=== PATIENT | male | born 1955 | race African-American/Black ===

== ENCOUNTER 2020-07-04 12:55 | Observation (INO) | payer OTHER, MEDICAID ==
[~2020-07-04] VITALS: Ht 177.8 cm; Wt 76.3 kg
[2020-07-04 13:32] LABS: BASO % 1 % (0-3); EOS # 0.2 x10^3/uL (0.0-0.7); EOS % 3 % (0-3); HEMATOCRIT 42.7 % (39.0-53.0); HEMOGLOBIN 13.9 g/dL (13.0-17.5); LYMPH # 1.5 x10^3/uL (1.0-4.8); LYMPH % 30 % (24-48); MEAN CORPUSCULAR HEMOGLOBIN 28 pg (25-35); MEAN CORPUSCULAR HGB CONC 33 g/dL (31-37); MEAN CORPUSCULAR VOLUME 86 fL (79-100); MONO # 0.7 x10^3/uL (0.0-1.1); MONO % 14 % (0-9); NEUT # 2.6 x10^3/uL (1.8-7.7); NEUT % 52 % (31-73); PLATELET COUNT 159 x10^3/uL (140-400); RED BLOOD COUNT 4.98 x10^6/uL (4.30-5.70)
--- NOTE | 2020-07-04 13:39 | PHYS DOC ---
Past Medical History Past Medical History: Cancer, CHF, COPD, Diabetes-Type II, GERD, GI Bleed, Hypertension, OK, Pancreatitis, Seizure, Stroke, Other Additional Past Medical Histor: COLORECTAL CA WITH CHEMO Past Surgical History: Cancer Surgery, Tonsillectomy, Other Additional Past Surgical Histo: CARDIAC CATH WITH STENTS, RIGHT FOOT SURGERY Smoking Status: Current Every Day Smoker Alcohol Use: Rarely Drug Use: None General Adult EDM: Chief Complaint: CHEST PAIN HPI: HPI: Patient is a 64 year old male who presented to ER today for evaluation of left- sided chest pain that radiated on the neck started yesterday. Patient also had trouble breathing, denies any cough or fever. Patient denies any abdominal pain, no nausea vomiting. Patient do have history of CHF, COPD,continues to smoke. He also has history of coronary artery disease, had multiple stents in the past. Patient took several doses of nitroglycerin at home but the pain did not get better so he came here for evaluation. Review of Systems: Review of Systems: Constitutional: Denies fever or chills. [] Eyes: Denies change in visual acuity. [] HENT: Denies nasal congestion or sore throat. [] Respiratory: Denies cough or shortness of breath. [] Cardiovascular: Positive for chest pain, no edema.] GI: Denies abdominal pain, nausea, vomiting, bloody stools or diarrhea. [] : Denies dysuria. [] Musculoskeletal: Denies back pain or joint pain. [] Integument: Denies rash. [] Neurologic: Denies headache, focal weakness or sensory changes. [] Endocrine: Denies polyuria or polydipsia. [] Lymphatic: Denies swollen glands. [] Psychiatric: Denies depression or anxiety. [] Heart Score: HEART Score for Chest Pain: HEART Score for Chest Pain Response (Comments) Value History Moderately Suspicious 1 ECG Nonspecific Repolarizatio 1 Age > 65 2 Risk Factors >3 Risk Factors or Hx CAD 2 Troponin < Normal Limit 0 Total 6 Risk Factors: Risk Factors: DM, Current or recent (<one month) smoker, HTN, HLP, family history of CAD, obesity. Risk Scores: Score 0 - 3: 2.5% MACE over next 6 weeks - Discharge Home Score 4 - 6: 20.3% MACE over next 6 weeks - Admit for Clinical Observation Score 7 - 10: 72.7% MACE over next 6 weeks - Early Invasive Strategies Allergies: Allergies: Allergies Coded Allergies Type Severity Reaction Last Updated Verified carbamazepine Allergy Severe Anaphylaxis 04/13/15 No phenobarbital Allergy Severe Anaphylaxis 04/13/15 No phenytoin Allergy Severe Anaphylaxis 04/13/15 No diphenhydramine Allergy Intermediate Hives 04/13/15 No Physical Exam: PE: Constitutional: Well developed, well nourished, no acute distress, non-toxic appearance. [] HENT: Normocephalic, atraumatic, bilateral external ears normal, oropharynx moist, no oral exudates, nose normal. [] Eyes: PERRLA, EOMI, conjunctiva normal, no discharge. [] Neck: Normal range of motion, no tenderness, supple, no stridor. [] Cardiovascular:Heart rate regular rhythm, no murmur [] Lungs & Thorax: Bilateral breath sounds clear to auscultation [] Abdomen: Bowel sounds normal, soft, no tenderness, no masses, no pulsatile masses. [] Skin: Warm, dry, no erythema, no rash. [] Back: No tenderness, no CVA tenderness. [] Extremities: No tenderness, no cyanosis, no clubbing, ROM intact, no edema. [] Neurologic: Alert and oriented X 3, normal motor function, normal sensory function, no focal deficits noted. [] Psychologic: Affect normal, judgement normal, mood normal. [] Current Patient Data: Labs: Laboratory Tests Test 07/04/20 13:20 White Blood Count 5.0 x10^3/uL (4.0-11.0) Red Blood Count 4.98 x10^6/uL (4.30-5.70) Hemoglobin 13.9 g/dL (13.0-17.5) Hematocrit 42.7 % (39.0-53.0) Mean Corpuscular Volume 86 fL (79-100) Mean Corpuscular Hemoglobin 28 pg (25-35) Mean Corpuscular Hemoglobin Concent 33 g/dL (31-37) Red Cell Distribution Width 13.0 % (11.5-14.5) Platelet Count 159 x10^3/uL (140-400) Neutrophils (%) (Auto) 52 % (31-73) Lymphocytes (%) (Auto) 30 % (24-48) Monocytes (%) (Auto) 14 % (0-9) H Eosinophils (%) (Auto) 3 % (0-3) Basophils (%) (Auto) 1 % (0-3) Neutrophils # (Auto) 2.6 x10^3/uL (1.8-7.7) Lymphocytes # (Auto) 1.5 x10^3/uL (1.0-4.8) Monocytes # (Auto) 0.7 x10^3/uL (0.0-1.1) Eosinophils # (Auto) 0.2 x10^3/uL (0.0-0.7) Basophils # (Auto) 0.0 x10^3/uL (0.0-0.2) Laboratory Tests 07/04/20 13:20 Vital Signs: Vital Signs Date Time Temp Pulse Resp B/P (MAP) Pulse Ox O2 Delivery O2 Flow Rate FiO2 07/04/20 13:10 98.3 83 22 176/86 (116) 97 Room Air 98.3 EKG: EKG: EKG was done at 1308, heart rate of 85 bpm, sinus rhythm, no ST segment elevation. Incomplete left bundle branch block. Radiology/Procedures: Impression: [facility] [address] [place] [address] IMAGING REPORT Signed PATIENT: MEY BUCHANAN ACCOUNT: [id number] : 1955 LOCATION: ER AGE: 64 SEX: M EXAM STATUS: REG ER ORD. PHYSICIAN: ERNESTINE NUÑEZ DO REASON: chest pain PROCEDURE: PORTABLE CHEST 1V PORTABLE CHEST 1V Clinical indications: Chest pain. COMPARISON: April 25, 2009. Findings: No acute lung infiltrate or pleural effusion or pulmonary edema or lung mass or pneumothorax is seen. The heart size, pulmonary vasculature, mediastinum and both mark are unremarkable. Impression: No acute radiographic abnormality is seen. Electronically signed by: Yung York MD (07/04/2020 1:39 PM) [id number] DICTATED and SIGNED BY: YUNG YORK MD DATE: 07/04/20 1339 Course & Med Decision Making: Course & Med Decision Making Pertinent Labs and Imaging studies reviewed. (See chart for details) Patient is a 64-year-old male who was evaluated in ER due to chest pain since yesterday. Due to his risk factorS, patient will be admitted to observation. Discussed with Dr. Yung. Jose Disclaimer: Jose Disclaimer: This electronic medical record was generated, in whole or in part, using a voice recognition dictation system. Departure Departure Impression: Primary Impression: Chest pain Disposition: ADMITTED INPATIENT Admitting Physician: MARIANNE (Dr. Yung) Condition: STABLE Referrals: DONELL ELIZABETH DO (PCP) Justicifation of Admission Dx: Justifications for Admission: Justification of Admission Dx: N/A ERNESTINE NUÑEZ DO Jul 04, 2020 13:39
--- NOTE | 2020-07-04 13:43 | RAD ---
PORTABLE CHEST 1V Clinical indications: Chest pain. COMPARISON: April 25, 2009. Findings: No acute lung infiltrate or pleural effusion or pulmonary edema or lung mass or pneumothorax is seen. The heart size, pulmonary vasculature, mediastinum and both mark are unremarkable. Impression: No acute radiographic abnormality is seen. Electronically signed by: Patric York MD (07/04/2020 1:39 PM) [id number]
[2020-07-04 13:50] LABS: PROTHROMBIN TIME PATIENT 12.4 SEC (11.7-14.0)
[2020-07-04 13:52] LABS: CALCIUM 9.6 mg/dL (8.5-10.1); CREATININE 1.5 mg/dL (0.7-1.3); GFR 56.8
[2020-07-04 13:57] LABS: ALBUMIN 3.2 g/dL (3.4-5.0); ALBUMIN/GLOBULIN RATIO 0.8 (1.0-1.7); TOTAL BILIRUBIN 0.4 mg/dL (0.2-1.0); TOTAL PROTEIN 7.2 g/dL (6.4-8.2)
[2020-07-04] MEDS ORDERED: ZOLPIDEM 5 MG TABLET. PO PRN (14:15)
[2020-07-04] MEDS ORDERED: ACETAMINOPHEN 325 MG TABLET. PO PRN (14:15)
[2020-07-04] MEDS ORDERED: LACTULOSE 20 GM/30 ML SOLUTION. PO PRN (14:15)
[2020-07-04] MEDS ORDERED: NITROGLYCERIN SUBLINGUAL 0.4 MG BOTTLE OF 25. SL PRN ×2 (14:15→17:15)
[2020-07-04] MEDS ORDERED: MAG HYDROX/ALUMINUM HYD/SIMETH 30 ML ORAL.SUSP PO PRN (14:15)
[2020-07-04] MEDS ORDERED: 0.9 % SODIUM CHLORIDE 10 ML DISP.SYRIN. IV PRN (14:15)
[2020-07-04] MEDS ORDERED: ONDANSETRON PF 4 MG/2 ML VIAL. IVP PRN (14:15)
[2020-07-04] MEDS ORDERED: MORPHINE SULFATE 2 MG/ML VIAL. IVP PRN (14:15)
[2020-07-04] MEDS ORDERED: MAGNESIUM HYDROXIDE 2,400 MG/30 ML ORAL.SUSP. PO PRN (14:15)
--- NOTE | 2020-07-04 14:21 | PDOC1 ---
History and Physical Date of Admission Date of Admission 07/04/2020 Identification/Chief Complaint Chief Complaint My chest hurts Source Source: Chart review, Patient History of Present Illness History of Present Illness Patient is a 64-year-old gentleman with past medical history of coronary artery disease status post PCI and stent, congestive heart failure diabetes type 2 history of essential hypertension who was in his usual state of health until approximately yesterday evening when he had precordial chest pain sharp in nature lasting few seconds but recurred and lasting less than 5 minutes. Patient had associated dyspnea, no cough fever or recent exposure to COVID-19 patients was reported by the patient. The patient denied any generalized malaise no fever no cold-like symptoms. Patient denies any sensation of impending doom he did not have any nausea associated with the chest discomfort. Patient does have a history of congestive heart failure and is in the process of establishing care with cardiology. Patient does not remember when was last time he had an echocardiogram. Keeps referring to the medical records we should have on file which I have reviewed and unfortunately have not been able to find evidence of cardiac catheterization nor echocardiograms in the recent past. At the time of my note the patient is laying in bed in no acute distress the patient gives a history of taking nitroglycerin alleviating his symptoms and given the past medical history and story concerning for angina at rest he is being admitted for further evaluation and treatment. Plan of care has been explained detail and all of his concerns were addressed to the best of my abilities. Patient denies any headache no blurred vision no double vision no paroxysmal internal dyspnea no syncopal episodes were reported no palpitations no other symptoms have been reported. All concerns were addressed to the best of my ability Past Medical History Cardiovascular: CAD, HTN, Hyperlipidemia CENTRAL NERVOUS SYSTEM: CVA, Seizure GI: Other (Pancreatitis) Heme/Onc: Cancer (Colorectal) Endocrine: Diabetes Past Surgical History Past Surgical History: No pertinent history (PCI) Family History Family History: No Significant Social History Smoke: # pack years (Greater than 20 pack/years) ALCOHOL: none Drugs: None Current Problem List Problem List Problems Medical Problems: (1) Chest pain Status: Acute Allergies Allergies Allergies Coded Allergies Type Severity Reaction Last Updated Verified carbamazepine Allergy Severe Anaphylaxis 04/13/15 No phenobarbital Allergy Severe Anaphylaxis 04/13/15 No phenytoin Allergy Severe Anaphylaxis 04/13/15 No diphenhydramine Allergy Intermediate Hives 04/13/15 No ROS Review of System CONSTITUTIONAL: No fever or chills EYES: No recent changes SKIN: No rash or itching CARDIOVASCULAR: Pertinent chest pain, no syncope, palpitations, or edema RESPIRATORY: No SOB or cough GASTROINTESTINAL: No nausea, vomiting or abdominal pain NEUROLOGICAL: No headaches or weakness ENDOCRINE: No cold or heat intolerance GENITOURINARY: No urgency or frequency of urination MUSCULOSKELETAL: No back pain or joint pain LYMPHATICS: No enlarged lymph nodes PSYCHIATRIC: No anxiety or depression Physical Exam Physical Exam GEN.: No apparent distress. Alert and oriented. HEENT: Head is normocephalic, atraumatic NECK: Supple. LUNGS: Clear to auscultation. HEART: RRR, S1, S2 present. Peripheral pulses intact ABDOMEN: Soft, nontender. Positive bowel sounds. EXTREMITIES: Without any cyanosis. NEUROLOGIC: Normal speech, normal tone PSYCHIATRIC: Normal affect, normal mood. SKIN: No ulcerations Vitals Vitals Vital Signs Date Time Temp Pulse Resp B/P (MAP) Pulse Ox O2 Delivery O2 Flow Rate FiO2 07/04/20 13:10 98.3 83 22 176/86 (116) 97 Room Air 98.3 Labs Labs Laboratory Tests Test 07/04/20 13:20 White Blood Count 5.0 x10^3/uL (4.0-11.0) Red Blood Count 4.98 x10^6/uL (4.30-5.70) Hemoglobin 13.9 g/dL (13.0-17.5) Hematocrit 42.7 % (39.0-53.0) Mean Corpuscular Volume 86 fL (79-100) Mean Corpuscular Hemoglobin 28 pg (25-35) Mean Corpuscular Hemoglobin Concent 33 g/dL (31-37) Red Cell Distribution Width 13.0 % (11.5-14.5) Platelet Count 159 x10^3/uL (140-400) Neutrophils (%) (Auto) 52 % (31-73) Lymphocytes (%) (Auto) 30 % (24-48) Monocytes (%) (Auto) 14 % (0-9) Eosinophils (%) (Auto) 3 % (0-3) Basophils (%) (Auto) 1 % (0-3) Neutrophils # (Auto) 2.6 x10^3/uL (1.8-7.7) Lymphocytes # (Auto) 1.5 x10^3/uL (1.0-4.8) Monocytes # (Auto) 0.7 x10^3/uL (0.0-1.1) Eosinophils # (Auto) 0.2 x10^3/uL (0.0-0.7) Basophils # (Auto) 0.0 x10^3/uL (0.0-0.2) Sodium Level 141 mmol/L (136-145) Potassium Level 5.0 mmol/L (3.5-5.1) Chloride Level 106 mmol/L (98-107) Carbon Dioxide Level 29 mmol/L (21-32) Anion Gap 6 (6-14) Blood Urea Nitrogen 15 mg/dL (8-26) Creatinine 1.5 mg/dL (0.7-1.3) Estimated GFR (Cockcroft-Gault) 56.8 BUN/Creatinine Ratio 10 (6-20) Glucose Level 116 mg/dL (70-99) Calcium Level 9.6 mg/dL (8.5-10.1) Magnesium Level 2.0 mg/dL (1.8-2.4) Total Bilirubin 0.4 mg/dL (0.2-1.0) Aspartate Amino Transf (AST/SGOT) 32 U/L (15-37) Alanine Aminotransferase (ALT/SGPT) 28 U/L (16-63) Alkaline Phosphatase 115 U/L (46-116) Troponin I Quantitative < 0.017 ng/mL (0.000-0.055) EV-Toq-C-Type Natriuretic Peptide 333 pg/mL (0-124) Total Protein 7.2 g/dL (6.4-8.2) Albumin 3.2 g/dL (3.4-5.0) Albumin/Globulin Ratio 0.8 (1.0-1.7) Lipase 141 U/L (73-393) Laboratory Tests Test 07/04/20 13:20 White Blood Count 5.0 x10^3/uL (4.0-11.0) Red Blood Count 4.98 x10^6/uL (4.30-5.70) Hemoglobin 13.9 g/dL (13.0-17.5) Hematocrit 42.7 % (39.0-53.0) Mean Corpuscular Volume 86 fL (79-100) Mean Corpuscular Hemoglobin 28 pg (25-35) Mean Corpuscular Hemoglobin Concent 33 g/dL (31-37) Red Cell Distribution Width 13.0 % (11.5-14.5) Platelet Count 159 x10^3/uL (140-400) Neutrophils (%) (Auto) 52 % (31-73) Lymphocytes (%) (Auto) 30 % (24-48) Monocytes (%) (Auto) 14 % (0-9) Eosinophils (%) (Auto) 3 % (0-3) Basophils (%) (Auto) 1 % (0-3) Neutrophils # (Auto) 2.6 x10^3/uL (1.8-7.7) Lymphocytes # (Auto) 1.5 x10^3/uL (1.0-4.8) Monocytes # (Auto) 0.7 x10^3/uL (0.0-1.1) Eosinophils # (Auto) 0.2 x10^3/uL (0.0-0.7) Basophils # (Auto) 0.0 x10^3/uL (0.0-0.2) Sodium Level 141 mmol/L (136-145) Potassium Level 5.0 mmol/L (3.5-5.1) Chloride Level 106 mmol/L (98-107) Carbon Dioxide Level 29 mmol/L (21-32) Anion Gap 6 (6-14) Blood Urea Nitrogen 15 mg/dL (8-26) Creatinine 1.5 mg/dL (0.7-1.3) Estimated GFR (Cockcroft-Gault) 56.8 BUN/Creatinine Ratio 10 (6-20) Glucose Level 116 mg/dL (70-99) Calcium Level 9.6 mg/dL (8.5-10.1) Magnesium Level 2.0 mg/dL (1.8-2.4) Total Bilirubin 0.4 mg/dL (0.2-1.0) Aspartate Amino Transf (AST/SGOT) 32 U/L (15-37) Alanine Aminotransferase (ALT/SGPT) 28 U/L (16-63) Alkaline Phosphatase 115 U/L (46-116) Troponin I Quantitative < 0.017 ng/mL (0.000-0.055) AD-Mdi-X-Type Natriuretic Peptide 333 pg/mL (0-124) Total Protein 7.2 g/dL (6.4-8.2) Albumin 3.2 g/dL (3.4-5.0) Albumin/Globulin Ratio 0.8 (1.0-1.7) Lipase 141 U/L (73-393) VTE Prophylaxis Ordered VTE Prophylaxis Devices: No VTE Pharmacological Prophylaxi: Yes Assessment/Plan Assessment/Plan Chest pain rule out ACS History of CHF most likely systolic dysfunction given history of ischemic heart disease COPD secondary to tobacco abuse Tobacco abuse counseling done less than 10 minutes Diabetes mellitus type 2 Essential hypertension History of PCI and stent placement History of colorectal cancer status post chemotherapy Plan Trend troponin Consult cardiology Resume home medications once available for review Pain management Nitro PRN for chest discomfort DVT prophylaxis with Lovenox Further recommendations based on the clinical course Justifications for Admission Chest Pain Indications Poss tachycardia?: Yes Respiratory Distress?: Yes Chest pain indicative of: Other: Please Specify Other Chest Pain Conditions: angina Is patient at high risk?: Yes Other Justification ALONSO OLIVEIRA MD Jul 04, 2020 14:21
[2020-07-04] MEDS ORDERED: ASPIRIN CHEWABLE 81 MG TABLET. PO ONE (14:30)
--- NOTE | 2020-07-04 14:54 | EKG ---
[facility] [address] [place] [address] Test Date: 2020-07-04 Test Time: 13:08:07 Pat Name: MEY BUCHANAN Department: Room: Gender: M Manager Mining: : 1955 Requested By: ERNESTINE NUÑEZ Order Number: [id number] Reading MD: Measurements Intervals [place] Rate: 85 P: 69 MA: 130 QRS: -19 QRSD: 98 T: 15 QT: 356 QTc: 424 Interpretive Statements SINUS RHYTHM LEFT ATRIAL ABNORMALITY LEFTWARD AXIS INCOMPLETE RIGHT BUNDLE BRANCH BLOCK ABNORMAL ECG RI6.02 No previous ECG available for comparison
[2020-07-04 15:17] VITALS: BP 90/72
[2020-07-04] MEDS ORDERED: CARV25TA2 PO (17:00)
[2020-07-04] MEDS ORDERED: NITR0.4T22 SL (17:00)
[2020-07-04] MEDS ORDERED: OXYC5CAP PO (17:00)
[2020-07-04] MEDS ORDERED: FURO40TA4 PO (17:00)
[2020-07-04] MEDS ORDERED: CLOP75TA PO (17:00)
[2020-07-04] MEDS: CARVEDILOL 12.5 MG TABLET. PO SCH (17:37)
[2020-07-04] MEDS: CLOPIDOGREL BISULFATE 75 MG TABLET PO SCH (17:37)
[2020-07-04 17:42] VITALS: BP 161/83
[2020-07-04] MEDS: oxyCODONE IR 5 MG TABLET PO PRN (18:00)
[2020-07-04 19:50] VITALS: BP 150/91
[2020-07-04] MEDS: SENNOSIDES/DOCUSATE 8.6/50MG TABLET. PO SCH (21:21)
[2020-07-04] MEDS: HEPARIN for SUB-Q USE 5,000 UNIT/ML VIAL. SQ SCH (21:23)
[2020-07-04 23:20] VITALS: BP 141/81
[2020-07-05 03:35] VITALS: BP 141/68
[2020-07-05] MEDS: oxyCODONE IR 5 MG TABLET PO PRN (03:51)
[2020-07-05] MEDS: HEPARIN for SUB-Q USE 5,000 UNIT/ML VIAL. SQ SCH (06:03)
[2020-07-05 07:00] VITALS: BP 135/69
[2020-07-05 07:52] LABS: CHOLESTEROL/HDL RATIO 4.1; PHOSPHORUS 3.5 mg/dL (2.6-4.7)
[2020-07-05] MEDS ORDERED: ASPIRIN 325 MG TABLET PO SCH (08:00)
[2020-07-05] MEDS: CARVEDILOL 12.5 MG TABLET. PO SCH (08:32)
[2020-07-05] MEDS: CLOPIDOGREL BISULFATE 75 MG TABLET PO SCH (08:32)
[2020-07-05] MEDS: SENNOSIDES/DOCUSATE 8.6/50MG TABLET. PO SCH (08:33)
--- NOTE | 2020-07-05 08:54 | PDOC2 ---
DEE ZIMMERMAN AWS SOLUTION ARCHITECT 07/05/20 0854: CARDIAC CONSULT DATE OF CONSULT Date of Consult DATE: 07/05/20 TIME: 08:43 REASON FOR CONSULT Reason for Consult: angina at rest REFERRING PHYSICIAN Referring Physician: Dilshad SOURCE Source: Chart review, Patient HISTORY OF PRESENT ILLNESS HISTORY OF PRESENT ILLNESS This is a pleasant 64 yo male admitted for complains of chest pain. His chest pain is sharp stabbing and occurred yesterday. This was not associated with SOA but did have some nausea and some discomfort radiating to her mid back. Also noted some discomfort to the back of his neck and left arm. He pointed the discomfort at fingerbreath width above his nipple and has not recurred so far. He did take NTG. No complains of vomiting and does have heartburn but experiences this about once a week. Denies any recent falls, frequent dizziness. He smokes tobacco. Verbalized compliance with his meds and still takes ASA and plavix. No PUD, VTE but significant for CAD with stent placed in 03/2019 at [place] at "[facility]". He moved there in 2017 to be closer to his 5 kids and eventually came back [facility] 6 months ago to be with his other son. He has not had any follow up with any radiologic technician since he was in [place]. He was suppose to see Dr. Terrell few days ago but he failed to set up a r eminder. PAST MEDICAL HISTORY Cardiovascular: CAD, CHF, HTN, Hyperlipidemia, Other (celiac artery stenosis) Pulmonary: COPD CENTRAL NERVOUS SYSTEM: Seizure GI: GERD, Other (fecal incontinence) Heme/Onc: Anemia NOS Hepatobiliary: No pertinent hx, Hep A/B/C (B, C) Psych: Depression, Schizophrenia Musculoskeletal: low back pain, Osteoarthritis Rheumatologic: No pertinent hx Infectious disease: No pertinent hx ENT: Other (cataract) Renal/: UTI, Benign prostatic enlarg., Other (nephrolithiasis) Endocrine: Diabetes (2) PAST SURGICAL HISTORY Past Surgical History: Arthroscopy (right femoral fracture repair), Tonsillectomy, Colon Resection, Other (colostomy takedown; celiac artery stent placement; anal pain status post sphincterotomy in 11/11/2012) FAMILY HISTORY Family History: Coronary Artery Disease (mother) SOCIAL HISTORY Smoke: <1 pack per day ALCOHOL: rare Drugs: None Lives: with Family (brother) CURRENT MEDICATIONS CURRENT MEDICATIONS Current Medications Medications (Trade) Dose Ordered Sig/Rey Route PRN Reason Start Time Stop Time Status Last Admin Dose Admin Aspirin (Lee Aspirin) 325 mg DAILYWBKFT PO 07/05/20 08:00 07/05/20 08:32 Nitroglycerin (Nitrostat) 0.4 mg PRN Q5MIN PRN SL CHEST PAIN 07/04/20 14:15 07/04/20 17:07 DC 07/04/20 14:45 Heparin Sodium (Porcine) (Heparin Sodium) 5,000 unit Q8HRS SQ 07/04/20 22:00 07/05/20 06:03 Senna/Docusate Sodium (Senna Plus) 1 tab BID PO 07/04/20 21:00 07/05/20 08:33 Aspirin (Aspirin Chewable) 324 mg 1X ONCE PO 07/04/20 14:30 07/04/20 14:31 DC 07/04/20 14:45 Clopidogrel Bisulfate (Plavix) 75 mg DAILY PO 07/04/20 17:30 07/05/20 08:32 Furosemide (Lasix) 40 mg DAILY PO 07/05/20 09:00 07/05/20 08:33 Carvedilol (Coreg) 25 mg BIDWMEALS PO 07/04/20 17:30 07/05/20 08:32 Oxycodone HCl (Roxicodone) 5 mg PRN Q6HRS PRN PO PAIN 07/04/20 17:15 07/05/20 03:51 ALLERGIES ALLERGIES: Coded Allergies: carbamazepine (Unverified Allergy, Severe, Anaphylaxis, 04/13/15) phenobarbital (Unverified Allergy, Severe, Anaphylaxis, 04/13/15) phenytoin (Unverified Allergy, Severe, Anaphylaxis, 04/13/15) diphenhydramine (Unverified Allergy, Intermediate, Hives, 04/13/15) ROS Review of System 14 point ROS evaluated with pertinent positives noted per HPI PHYSICAL EXAM General: Alert, Oriented X3, Cooperative, No acute distress HEENT: Atraumatic, Mucous membr. moist/pink Lungs: Clear to auscultation, Normal air movement Heart: Regular rate (SR), Normal S1, Normal S2, No murmurs Abdomen: Soft, No tenderness Extremities: No cyanosis, No edema Skin: No breakdown, No significant lesion Neuro: Normal speech, Sensation intact Psych/Mental Status: Mental status NL, Mood NL MUSCULOSKELETAL: Osteoarthritic changes both hands VITALS/I&O VITALS/I&O: Vital Signs Date Time Temp Pulse Resp B/P (MAP) Pulse Ox O2 Delivery O2 Flow Rate FiO2 07/05/20 08:32 56 135/69 07/05/20 07:00 98.0 21 98 Room Air 98.0 I & O 07/04/20 07/04/20 07/05/20 15:00 23:00 07:00 Intake Total 520 ml Output Total 200 ml 500 ml Balance -200 ml 20 ml LABS Lab: Laboratory Tests Test 07/04/20 13:20 07/04/20 16:07 07/04/20 16:10 07/04/20 19:30 White Blood Count 5.0 x10^3/uL (4.0-11.0) Red Blood Count 4.98 x10^6/uL (4.30-5.70) Hemoglobin 13.9 g/dL (13.0-17.5) Hematocrit 42.7 % (39.0-53.0) Mean Corpuscular Volume 86 fL (79-100) Mean Corpuscular Hemoglobin 28 pg (25-35) Mean Corpuscular Hemoglobin Concent 33 g/dL (31-37) Red Cell Distribution Width 13.0 % (11.5-14.5) Platelet Count 159 x10^3/uL (140-400) Neutrophils (%) (Auto) 52 % (31-73) Lymphocytes (%) (Auto) 30 % (24-48) Monocytes (%) (Auto) 14 % (0-9) H Eosinophils (%) (Auto) 3 % (0-3) Basophils (%) (Auto) 1 % (0-3) Neutrophils # (Auto) 2.6 x10^3/uL (1.8-7.7) Lymphocytes # (Auto) 1.5 x10^3/uL (1.0-4.8) Monocytes # (Auto) 0.7 x10^3/uL (0.0-1.1) Eosinophils # (Auto) 0.2 x10^3/uL (0.0-0.7) Basophils # (Auto) 0.0 x10^3/uL (0.0-0.2) Prothrombin Time 12.4 SEC (11.7-14.0) Prothrombin Time INR 1.0 (0.8-1.1) Activated Partial Thromboplast Time 27 SEC (24-38) Sodium Level 141 mmol/L (136-145) Potassium Level 5.0 mmol/L (3.5-5.1) Chloride Level 106 mmol/L (98-107) Carbon Dioxide Level 29 mmol/L (21-32) Anion Gap 6 (6-14) Blood Urea Nitrogen 15 mg/dL (8-26) Creatinine 1.5 mg/dL (0.7-1.3) H Estimated GFR (Cockcroft-Gault) 56.8 BUN/Creatinine Ratio 10 (6-20) Glucose Level 116 mg/dL (70-99) H Calcium Level 9.6 mg/dL (8.5-10.1) Magnesium Level 2.0 mg/dL (1.8-2.4) Total Bilirubin 0.4 mg/dL (0.2-1.0) Aspartate Amino Transferase (AST) 32 U/L (15-37) Alanine Aminotransferase (ALT) 28 U/L (16-63) Alkaline Phosphatase 115 U/L (46-116) Troponin I Quantitative < 0.017 ng/mL (0.000-0.055) < 0.017 ng/mL (0.000-0.055) < 0.017 ng/mL (0.000-0.055) QP-Isj-Y-Type Natriuretic Peptide 333 pg/mL (0-124) H Total Protein 7.2 g/dL (6.4-8.2) Albumin 3.2 g/dL (3.4-5.0) L Albumin/Globulin Ratio 0.8 (1.0-1.7) L Lipase 141 U/L (73-393) Glucose (Fingerstick) 105 mg/dL (70-99) H Test 07/04/20 21:06 07/05/20 07:19 07/05/20 07:27 Glucose (Fingerstick) 121 mg/dL (70-99) H 143 mg/dL (70-99) H Phosphorus Level 3.5 mg/dL (2.6-4.7) Magnesium Level 2.0 mg/dL (1.8-2.4) Triglycerides Level 170 mg/dL (0-150) H Cholesterol Level 152 mg/dL (0-200) LDL Cholesterol, Calculated 81 mg/dL (0-100) VLDL Cholesterol, Calculated 34 mg/dL (0-40) Non-HDL Cholesterol Calculated 115 mg/dL (0-129) HDL Cholesterol 37 mg/dL (40-60) L Cholesterol/HDL Ratio 4.1 Thyroid Stimulating Hormone (TSH) 2.432 uIU/mL (0.358-3.74) Laboratory Tests 07/04/20 13:20 Laboratory Tests 07/04/20 13:20 ASSESSMENT/PLAN ASSESSMENT/PLAN 1. Chest pain: Mixed features. trops nml, EKG SR without acute changes by comparison 2. CAD: reported 2 stents 03/2019 in [place] 3. HTN: reported labile at home 160/110s, currently controlled 4. HLP: close to goal 5. DM2: takes glyburide. May benefit from jardiance. 6. COPD with tobaccoism 7. GERD 8. Hx of celiac artery stenosis with INCLUSION SPECIALIST/stent 9. Hx of schizophrenia: on geodon, seroquel and risperidone 10. Reported hx of ICM: with EF of 20%, compensated 11. ADOLFO vs CKD Recommendations TTE, if no significant changes then will arrange for outpt MPI next week Secondary prevention, UDS Continue ASA 81 mg/plavix. Continue BP regimen, coreg. HBPM and will adjust BP regimen as an outpt. BMP as an outpt and reeval for ACEi use. DASH diet With Cr up to 1.8 may need to hold lasix. Await TTE and note EF Follow up in office August 04 8:[address] Terrell. Smoking cessation. MADHU TERRELL MD 07/05/20 1915: CARDIAC CONSULT ASSESSMENT/PLAN ASSESSMENT/PLAN The patient was seen and interviewed as well as examined at the bedside. The chart was reviewed. The case was discussed. Agree with the plan of care. DEE ZIMMERMAN APRN Jul 05, 2020 08:54 MADHU TERRELL MD Jul 05, 2020 19:15
[2020-07-05] MEDS ORDERED: FUROSEMIDE 40 MG TABLET. PO SCH (09:00)
[2020-07-05 09:58] LABS: ALBUMIN 2.9 g/dL (3.4-5.0); ALBUMIN/GLOBULIN RATIO 0.8 (1.0-1.7); CREATININE 1.8 mg/dL (0.7-1.3); POTASSIUM 4.2 mmol/L (3.5-5.1); TOTAL BILIRUBIN 0.3 mg/dL (0.2-1.0); TOTAL PROTEIN 6.6 g/dL (6.4-8.2)
--- NOTE | 2020-07-05 10:47 | NUR ---
SS following for discharge planning. SS reviewed pt chart and discussed with pt RN. Pt is from home and is currently on room air. Cardiology consulted. Discharge order on the chart for home with self care.
[2020-07-05 11:00] VITALS: BP 137/81
--- NOTE | 2020-07-05 13:51 | PDOC3 ---
Discharge Summary Visit Information Date of Admission: Jul 04, 2020 Date of Discharge: Jul 05, 2020 Admitting Diagnosis Comment: Chest pain rule out ACS History of CHF most likely systolic dysfunction given history of ischemic heart disease COPD secondary to tobacco abuse Tobacco abuse counseling done less than 10 minutes Diabetes mellitus type 2 Essential hypertension History of PCI and stent placement History of colorectal cancer status post chemotherapy Final Diagnosis Chest pain ACS ruled out, 3 sets of CE negative History of CHF currently compensated seems to be chronic in nature and with preserved EF COPD secondary to tobacco abuse Tobacco abuse counseling done less than 10 minutes Diabetes mellitus type 2 Essential hypertension History of PCI and stent placement History of colorectal cancer status post chemotherapy Brief Hospital Course Allergies Allergies Coded Allergies Type Severity Reaction Last Updated Verified carbamazepine Allergy Severe Anaphylaxis 04/13/15 No phenobarbital Allergy Severe Anaphylaxis 04/13/15 No phenytoin Allergy Severe Anaphylaxis 04/13/15 No diphenhydramine Allergy Intermediate Hives 04/13/15 No Vital Signs Vital Signs Date Time Temp Pulse Resp B/P (MAP) Pulse Ox O2 Delivery O2 Flow Rate FiO2 07/05/20 11:00 98.2 70 20 137/81 (99) 98 Room Air 98.2 Lab Results Laboratory Tests Test 07/04/20 13:20 07/04/20 16:07 07/04/20 16:10 07/04/20 19:30 White Blood Count 5.0 x10^3/uL (4.0-11.0) Red Blood Count 4.98 x10^6/uL (4.30-5.70) Hemoglobin 13.9 g/dL (13.0-17.5) Hematocrit 42.7 % (39.0-53.0) Mean Corpuscular Volume 86 fL (79-100) Mean Corpuscular Hemoglobin 28 pg (25-35) Mean Corpuscular Hemoglobin Concent 33 g/dL (31-37) Red Cell Distribution Width 13.0 % (11.5-14.5) Platelet Count 159 x10^3/uL (140-400) Neutrophils (%) (Auto) 52 % (31-73) Lymphocytes (%) (Auto) 30 % (24-48) Monocytes (%) (Auto) 14 % (0-9) Eosinophils (%) (Auto) 3 % (0-3) Basophils (%) (Auto) 1 % (0-3) Neutrophils # (Auto) 2.6 x10^3/uL (1.8-7.7) Lymphocytes # (Auto) 1.5 x10^3/uL (1.0-4.8) Monocytes # (Auto) 0.7 x10^3/uL (0.0-1.1) Eosinophils # (Auto) 0.2 x10^3/uL (0.0-0.7) Basophils # (Auto) 0.0 x10^3/uL (0.0-0.2) Prothrombin Time 12.4 SEC (11.7-14.0) Prothromb Time International Ratio 1.0 (0.8-1.1) Activated Partial Thromboplast Time 27 SEC (24-38) Sodium Level 141 mmol/L (136-145) Potassium Level 5.0 mmol/L (3.5-5.1) Chloride Level 106 mmol/L (98-107) Carbon Dioxide Level 29 mmol/L (21-32) Anion Gap 6 (6-14) Blood Urea Nitrogen 15 mg/dL (8-26) Creatinine 1.5 mg/dL (0.7-1.3) Estimated GFR (Cockcroft-Gault) 56.8 BUN/Creatinine Ratio 10 (6-20) Glucose Level 116 mg/dL (70-99) Calcium Level 9.6 mg/dL (8.5-10.1) Magnesium Level 2.0 mg/dL (1.8-2.4) Total Bilirubin 0.4 mg/dL (0.2-1.0) Aspartate Amino Transf (AST/SGOT) 32 U/L (15-37) Alanine Aminotransferase (ALT/SGPT) 28 U/L (16-63) Alkaline Phosphatase 115 U/L (46-116) Troponin I Quantitative < 0.017 ng/mL (0.000-0.055) < 0.017 ng/mL (0.000-0.055) < 0.017 ng/mL (0.000-0.055) DQ-Maj-Q-Type Natriuretic Peptide 333 pg/mL (0-124) Total Protein 7.2 g/dL (6.4-8.2) Albumin 3.2 g/dL (3.4-5.0) Albumin/Globulin Ratio 0.8 (1.0-1.7) Lipase 141 U/L (73-393) Glucose (Fingerstick) 105 mg/dL (70-99) Test 07/04/20 21:06 07/05/20 07:19 07/05/20 07:27 07/05/20 12:00 Glucose (Fingerstick) 121 mg/dL (70-99) 143 mg/dL (70-99) 152 mg/dL (70-99) Sodium Level 140 mmol/L (136-145) Potassium Level 4.2 mmol/L (3.5-5.1) Chloride Level 106 mmol/L (98-107) Carbon Dioxide Level 28 mmol/L (21-32) Anion Gap 6 (6-14) Blood Urea Nitrogen 17 mg/dL (8-26) Creatinine 1.8 mg/dL (0.7-1.3) Estimated GFR (Cockcroft-Gault) 46.0 BUN/Creatinine Ratio 9 (6-20) Glucose Level 134 mg/dL (70-99) Calcium Level 9.0 mg/dL (8.5-10.1) Phosphorus Level 3.5 mg/dL (2.6-4.7) Magnesium Level 2.0 mg/dL (1.8-2.4) Total Bilirubin 0.3 mg/dL (0.2-1.0) Aspartate Amino Transf (AST/SGOT) 29 U/L (15-37) Alanine Aminotransferase (ALT/SGPT) 29 U/L (16-63) Alkaline Phosphatase 111 U/L (46-116) Total Protein 6.6 g/dL (6.4-8.2) Albumin 2.9 g/dL (3.4-5.0) Albumin/Globulin Ratio 0.8 (1.0-1.7) Triglycerides Level 170 mg/dL (0-150) Cholesterol Level 152 mg/dL (0-200) LDL Cholesterol, Calculated 81 mg/dL (0-100) VLDL Cholesterol, Calculated 34 mg/dL (0-40) Non-HDL Cholesterol Calculated 115 mg/dL (0-129) HDL Cholesterol 37 mg/dL (40-60) Cholesterol/HDL Ratio 4.1 Thyroid Stimulating Hormone (TSH) 2.432 uIU/mL (0.358-3.74) Laboratory Tests Test 07/04/20 16:07 07/04/20 16:10 07/04/20 19:30 07/04/20 21:06 Glucose (Fingerstick) 105 mg/dL (70-99) 121 mg/dL (70-99) Troponin I Quantitative < 0.017 ng/mL (0.000-0.055) < 0.017 ng/mL (0.000-0.055) Test 07/05/20 07:19 07/05/20 07:27 07/05/20 12:00 Sodium Level 140 mmol/L (136-145) Potassium Level 4.2 mmol/L (3.5-5.1) Chloride Level 106 mmol/L (98-107) Carbon Dioxide Level 28 mmol/L (21-32) Anion Gap 6 (6-14) Blood Urea Nitrogen 17 mg/dL (8-26) Creatinine 1.8 mg/dL (0.7-1.3) Estimated GFR (Cockcroft-Gault) 46.0 BUN/Creatinine Ratio 9 (-20) Glucose Level 134 mg/dL (70-99) Calcium Level 9.0 mg/dL (8.5-10.1) Phosphorus Level 3.5 mg/dL (2.6-4.7) Magnesium Level 2.0 mg/dL (1.8-2.4) Total Bilirubin 0.3 mg/dL (0.2-1.0) Aspartate Amino Transf (AST/SGOT) 29 U/L (15-37) Alanine Aminotransferase (ALT/SGPT) 29 U/L (16-63) Alkaline Phosphatase 111 U/L (46-116) Total Protein 6.6 g/dL (6.4-8.2) Albumin 2.9 g/dL (3.4-5.0) Albumin/Globulin Ratio 0.8 (1.0-1.7) Triglycerides Level 170 mg/dL (0-150) Cholesterol Level 152 mg/dL (0-200) LDL Cholesterol, Calculated 81 mg/dL (0-100) VLDL Cholesterol, Calculated 34 mg/dL (0-40) Non-HDL Cholesterol Calculated 115 mg/dL (0-129) HDL Cholesterol 37 mg/dL (40-60) Cholesterol/HDL Ratio 4.1 Thyroid Stimulating Hormone (TSH) 2.432 uIU/mL (0.358-3.74) Glucose (Fingerstick) 143 mg/dL (70-99) 152 mg/dL (70-99) [facility] Course Mr. Lund is a 64 old male who presented with angina type of symptoms, he did not have recurrence during his time in the hospital. He was evaluated by Cardiology and ECHO was ordered, official result is pending at this time but grossly seems to be have preserved EF and no abnormal valvulopathy noted. HE will be discharged and arrangements will be made for cardiology outpatient work up. All concerns addressed to the best of my abilities. Signs and symptoms of concern and when to seek medical attention were discussed in detail. Discharge Information Condition at Discharge: Improved Follow Up: Weeks Disposition/Orders: D/C to Home Scheduled Carvedilol (Carvedilol) 25 Mg Tablet, 25 MG PO BIDWMEALS for CARDIAC, (Reported) Entered as Reported by: BASSEM PRESCOTT on 07/04/201699 Last Taken: Unknown Dose on 07/03/20 Last Action: Converted on 07/04/201703 by ALONSO OLIVEIRA MD Clopidogrel Bisulfate (Clopidogrel) 75 Mg Tablet, 75 MG PO DAILY for TO PREVENT BLOOD CLOTS, #30 Ref 0 (Reported) Entered as Reported by: BASSEM PRESCOTT on 07/04/201699 Last Taken: Unknown Dose on 07/03/20 Last Action: Continued on 07/04/201703 by ALONSO OLIVEIRA MD Furosemide (Furosemide) 40 Mg Tablet, 40 MG PO DAILY for CHF, (Reported) Entered as Reported by: BASSEM PRESCOTT on 07/04/201699 Last Taken: 40 mg on Unknown Date & Time Last Action: Continued on 07/04/201703 by ALONSO OLIVEIRA MD Nitroglycerin (NITROGLYCERIN SubLingual) 0.4 Mg Tab.subl, 1 TAB SL UD for chest pain, #25 Ref 0 (Reported) 1st sign of attack; may repeat every 5 mins; if pain persists after 3 in 15 m in, medical attention is recommended Entered as Reported by: BASSEM PRESCOTT on 07/04/201699 Last Taken: Unknown Dose on 07/04/20 Last Action: Continued on 07/04/201703 by ALONSO OLIVEIRA MD Scheduled PRN Oxycodone Hcl (Oxycodone Hcl) 5 Mg Capsule, 5 MG PO PRN Q6HRS PRN for PAIN, Ref 0 (Reported) Entered as Reported by: BASSEM PRESCOTT on 07/04/201699 Last Taken: 5 mg on Unknown Date & Time Last Action: Converted on 07/04/201703 by ALONSO OLIVEIRA MD Justicifation of Admission Dx: Justifications for Admission: Justification of Admission Dx: N/A ALONSO OLIVEIRA MD Jul 05, 2020 13:51
[2020-07-05 15:00] VITALS: BP 109/73
[2020-07-05] MEDS ORDERED: ASPIRIN ENTERIC COATED 81 MG TABLET.DR. PO SCH (16:00)
--- NOTE | 2020-07-05 16:55 | NUR ---
DISCHARGED PATIENT HOME. DISCHARGE INSTRUCTIONS GIVEN. PIV AND MONITOR REMOVED. ESCORTED PATIENT OFF UNIT PER PATIENT AMBULATION INTO A PRIVATE VEHICLE.
--- NOTE | 2020-07-05 19:02 | CARD ---
MR#: [id number] Date of Study: 07/05/2020 Ordering Physician: DEE ZIMMERMAN, Referring Physician: DEE ZIMMERMAN, Tech: Pamela Love [facility] APPROVED REPORT EXAM: Two-dimensional and M-mode echocardiogram with Doppler and color Doppler. Other Information Quality : Good INDICATION Chest Pain 2D DIMENSIONS RVDd2.7 (2.9-3.5cm)Left Atrium(2D)2.9 (1.6-4.0cm) IVSd0.7 (0.7-1.1cm)Aortic Root(2D)2.6 (2.0-3.7cm) LVDd5.5 (3.9-5.9cm)LVOT Diameter2.1 (1.8-2.4cm) PWd0.8 (0.7-1.1cm)LVDs3.5 (2.5-4.0cm) FS (%) 37.3 %SV98.5 ml LVEF(%)60.0 (>50%) Aortic Valve AoV Peak Dante.163.3cm/sAoV VTI33.0cm AO Peak GR.10.7mmHgLVOT Peak Dante.120.3cm/s LVOT VTI 25.39cmAO Mean GR.5mmHg SHIKHA (VMAX)2.20cm2RTO (VTI)2.60cm2 Mitral Valve MV E Btucqvbp98.1cm/sMV DECEL [id number] MV A Yujvoyim45.5cm/sMV NKU74mu E/A Ratio1.1MVA (PHT)2.86cm2 TDI E/Medial E'11.8 Tricuspid Valve TR P. Cwziazpy792ho/sRAP MBIIPJDO0tuAa TR Peak Gr.68irZkHUXL62fpQw Pulmonary Vein S1 Goistuua14.0cm/sD2 Hjdzxsyy85.7cm/s LEFT VENTRICLE The left ventricle is normal size. There is mild concentric left ventricular hypertrophy. The left ve ntricular systolic function is normal and the ejection fraction is within normal range. The Ejection Fraction is 55-60%. There is normal LV segmental wall motion. Transmitral Doppler flow pattern is Gra de I-abnormal relaxation pattern. RIGHT VENTRICLE The right ventricle is normal size. The right ventricular systolic function is normal. ATRIA The left atrium size is normal. The right atrium size is normal. The interatrial septum is intact wit h no evidence for an atrial septal defect or patent foramen ovale as noted on 2-D or Doppler imaging. AORTIC VALVE The aortic valve is mildly thickened but opens well. Doppler and Color Flow revealed trace aortic reg urgitation. There is no significant aortic valvular stenosis. MITRAL VALVE The mitral valve is normal in structure and function. There is no evidence of mitral valve prolapse. There is no mitral valve stenosis. Doppler and Color-flow revealed trace mitral regurgitation. TRICUSPID VALVE The tricuspid valve is normal in structure and function. Doppler and Color Flow revealed trace tricus pid regurgitation. The PA pressure was estimated at 25 mmHg. There is no tricuspid valve stenosis. PULMONIC VALVE The pulmonic valve is not well visualized. Doppler and Color Flow revealed no pulmonic valvular regur gitation. There is no pulmonic valvular stenosis. GREAT VESSELS The aortic root is normal in size. The ascending aorta is not well seen. The IVC is normal in size an d collapses >50% with inspiration. PERICARDIAL EFFUSION There is no evidence of significant pericardial effusion. Critical Notification Critical Value: No <Conclusion> The left ventricular systolic function is normal and the ejection fraction is within normal range. Th e Ejection Fraction is 55-60%. There is normal LV segmental wall motion. Signed by : Mark Beverly, Electronically Approved : 07/05/2020 19:01:52
== END 2020-07-05 17:50 | disposition home or self-care (01) ==
LOC: ER 12:55 → 2 NORTH 13:54
PROVIDERS: ADMIT Internal Medicine; ATTEND Internal Medicine
DX: R07.89 Other chest pain (principal); I11.0 Hypertensive heart disease with heart failure; I50.9 Heart failure, unspecified; J44.9 Chronic obstructive pulmonary disease, unspecified; E11.9 Type 2 diabetes mellitus without complications; E78.5 Hyperlipidemia, unspecified; F17.210 Nicotine dependence, cigarettes, uncomplicated; K21.9 Gastro-esophageal reflux disease without esophagitis; I25.119 Atherosclerotic heart disease of native coronary artery with unspecified angina pectoris; F20.9 Schizophrenia, unspecified; Z79.82 Long term (current) use of aspirin; Z85.048 Personal history of other malignant neoplasm of rectum, rectosigmoid junction, and anus; Z86.73 Personal history of transient ischemic attack (TIA), and cerebral infarction without residual deficits; Z87.442 Personal history of urinary calculi; Z92.21 Personal history of antineoplastic chemotherapy; Z95.5 Presence of coronary angioplasty implant and graft
CPT/HCPCS: 36415; 71045; 80053; 80061; 82962; 83690; 83735; 83880; 84100; 84443; 84484; 85025; 85610; 85730; 93005; 93306; 96372; 99285; G0378; J1644; G0379

== ENCOUNTER 2020-10-28 14:24 | Emergency (ER) | payer OTHER, MEDICAID ==
[~2020-10-28 14:24] MED LIST: CARV25TA2 PO; CLOP75TA PO; FURO40TA4 PO; NITR0.4T22 SL; OXYC5CAP PO
== END 2020-10-28 17:03 | disposition left against medical advice (07) ==
LOC: ER 14:24
DX: R11.2 Nausea with vomiting, unspecified (principal); R19.7 Diarrhea, unspecified; M79.10 Myalgia, unspecified site; Z53.21 Procedure and treatment not carried out due to patient leaving prior to being seen by health care provider

== ENCOUNTER → 2021-01-03 | Outpatient (CLI) | payer OTHER, MEDICAID ==
--- NOTE | 2021-01-03 10:12 | RAD ---
MR#: [id number] Date of Study: 01/03/2021 Ordering Physician: LUCIANA KAUR, Referring Physician: LUCIANA KAUR, Tech: Nolberto Cedillo MBA, RDMS, RVT, RDCS, RTR APPROVED REPORT Patient Location: OUT-PATIENT Indications Uncontrolled HTN Renal Artery Doppler Right Renal Artery Left Renal Arter y Proximal 141.0/32.0 cm/secProximal 67.0/16.0 cm/sec Mid 138.0/32.0 cm/secMid 48.0/10.0 cm/sec Distal 70.0/18.0 cm/secDistal 32.0/9.0 cm/sec Renal/Aorta Ratio 1.49Renal/Aorta Ratio 0.71 Prox. Resistive Index 0.78Prox. Resistive Index 0.77 Mid Resistive Index 0.77Mid Resistive Index 0.78 Distal Resistive Index 0.75Distal Resistive Index 0.77 Rt. Segmental A. 34.0/9.0 cm/secLt. Segmental A. 51.0/12.0 cm/sec Renal Measurements RightLeft Kidney Jpclvu51.8 cm cmKidney Rwljpm19 cm cm Right Additional FindingsLeft Additional Findings Aortic Doppler VelocityWaveform Proximal Aorta 96.0 cm/sec Findings Grayscale images of the bilateral kidneys demonstrate echogenic kidneys consistent with medical renal disease. The bladder is grossly within normal limits on limited images. Spectral waveforms and color Doppler of the bilateral renal arteries demonstrates no significant sten osis. The aorta appears to be mildly atherosclerotic. Overall normal renal to aortic ratios. Veloc ities as noted above. Critical Notification Critical Value: No <Conclusion> 1. No significant renal artery stenosis identified Signed by : Mark Beverly, Electronically Approved : 01/03/2021 10:12:21
== END ==
LOC: US 09:41
PROVIDERS: ATTEND Internal Medicine Cardiovascular Disease
DX: I10 Essential (primary) hypertension (principal); I70.0 Atherosclerosis of aorta; N28.9 Disorder of kidney and ureter, unspecified
CPT/HCPCS: 76770

== ENCOUNTER 2021-01-28 18:42 | Emergency (ER) | payer OTHER, MEDICAID ==
[~2021-01-28] VITALS: Ht 177.8 cm; Wt 78.6 kg
[2021-01-28 18:45] VITALS: BP 175/86
[2021-01-28] MEDS ORDERED: TETRACAINE 0.5% OPHTH SOLUTION 4ML BOTTLE. ONE (18:52)
[2021-01-28] MEDS ORDERED: TETRACAINE 0.5% OPHTH SOLUTION 4ML BOTTLE. OD ONE (19:00)
[2021-01-28] MEDS ORDERED: eryth (19:10)
[2021-01-28] MEDS ORDERED: ERYT1OIN6 OP (19:10)
--- NOTE | 2021-01-28 19:11 | PHYS DOC ---
Past Medical History Past Medical History: Cancer, CHF, COPD, Diabetes-Type II, GERD, GI Bleed, Hypertension, FL, Pancreatitis, Seizure, Stroke, Other Additional Past Medical Histor: COLORECTAL CA WITH CHEMO Past Surgical History: Cancer Surgery, Tonsillectomy, Other Additional Past Surgical Histo: CARDIAC CATH WITH STENTS, RIGHT FOOT SURGERY Smoking Status: Current Every Day Smoker Alcohol Use: Rarely Drug Use: None General Adult EDM: Chief Complaint: EYE PROBLEMS HPI: HPI: Patient is a 65 year old male presents for evaluation after left eye injury. Patient states yesterday his left eye was poked with a stick. Patient states eye bleed and sudden onset of pain. Patient states he immediately removed the stick. Patient has pain opening left eye. Bright lights hurt. Patient has blurry vision. Prior to tetracaine left eye closed -- in position of comfort. After tetracaine patient able to open eyes. On exam-- Pressures 15,17. Dye uptake at 7 oclock position. EOMI PERRLA Subconjuntival hematoma 6-7-8-9 oclock position left eye. Review of Systems: Review of Systems: Constitutional: Denies fever or chills. [] Eyes: positive visual acuity change positive eye pain. [] HENT: Denies nasal congestion or sore throat. [] Respiratory: Denies cough or shortness of breath. [] Cardiovascular: Denies chest pain or edema. [] GI: Denies abdominal pain, nausea, vomiting, bloody stools or diarrhea. [] : Denies dysuria. [] Musculoskeletal: Denies back pain or joint pain. [] Integument: Denies rash. [] Neurologic: Denies headache, focal weakness or sensory changes. [] Endocrine: Denies polyuria or polydipsia. [] Lymphatic: Denies swollen glands. [] Psychiatric: Denies depression or anxiety. [] Heart Score: C/O Chest Pain: N/A Risk Factors: Risk Factors: DM, Current or recent (<one month) smoker, HTN, HLP, family history of CAD, obesity. Risk Scores: Score 0 - 3: 2.5% MACE over next 6 weeks - Discharge Home Score 4 - 6: 20.3% MACE over next 6 weeks - Admit for Clinical Observation Score 7 - 10: 72.7% MACE over next 6 weeks - Early Invasive Strategies Current Medications: Current Medications Medications (Trade) Dose Ordered Sig/Rey Start Time Stop Time Status Last Admin Dose Admin Tetracaine HCl (Tetracaine) 40 drop STK-MED ONCE 01/28/21 18:52 01/28/21 18:52 DC Allergies: Allergies: Allergies Coded Allergies Type Severity Reaction Last Updated Verified carbamazepine Allergy Severe Anaphylaxis 04/13/15 No phenobarbital Allergy Severe Anaphylaxis 04/13/15 No phenytoin Allergy Severe Anaphylaxis 04/13/15 No diphenhydramine Allergy Intermediate Hives 04/13/15 No Physical Exam: PE: Constitutional: Well developed, well nourished, no acute distress, non-toxic appearance. [] HENT: Normocephalic, atraumatic, bilateral external ears normal, oropharynx moist, no oral exudates, nose normal. [] Eyes: PERRLA, EOMI, Pressures 15,17. Dye uptake at 7 oclock position. EOMI PERRLA Subconjuntival hematoma 6-7-8-9 oclock position left eye. Neck: Normal range of motion, no tenderness, supple, no stridor. [] Cardiovascular:Heart rate regular rhythm, no murmur [] Lungs & Thorax: Bilateral breath sounds clear to auscultation [] Abdomen: Bowel sounds normal, soft, no tenderness, no masses, no pulsatile masses. [] Skin: Warm, dry, no erythema, no rash. [] Back: No tenderness, no CVA tenderness. [] Extremities: No tenderness, no cyanosis, no clubbing, ROM intact, no edema. [] Neurologic: Alert and oriented X 3, normal motor function, normal sensory function, no focal deficits noted. [] Psychologic: Affect normal, judgement normal, mood normal. [] Current Patient Data: Vital Signs: Vital Signs Date Time Temp Pulse Resp B/P (MAP) Pulse Ox O2 Delivery O2 Flow Rate FiO2 01/28/21 18:45 98.3 94 18 175/86 (115) 98 Room Air 98.3 EKG: EKG: [] Radiology/Procedures: Radiology/Procedures: [] Course & Med Decision Making: Course & Med Decision Making Pertinent Labs and Imaging studies reviewed. (See chart for details) []Rx erythromycin and t#[address] Eric Garcia Disclaimer: Jose Disclaimer: This electronic medical record was generated, in whole or in part, using a voice recognition dictation system. Departure Departure Impression: Primary Impression: Corneal abrasion, left Additional Impression: Corneal foreign body Disposition: 01 DC HOME SELF CARE/HOMELESS Condition: STABLE Referrals: MAGNOLIA BARKER MD (PCP) JOAN SHIELDS MD Patient Instructions: Eye - Corneal Abrasion, Eye - Corneal Foreign Body Scripts Acetaminophen With Codeine (ACETAMINOPHEN-COD #3 TABLET) 1 Each Tablet 1 TAB PO PRN Q4HRS PRN for PAIN for 10 Days, #20 TAB Prov: WALKER RAMIREZ DO 01/28/21 Erythromycin Base (Erythromycin) 1 Gm Oint...g. 1 GM OP 6XDAY for 10 Days, #1 MISC apply 1cm ribbon in left eye up to 6x/days x 10 days Prov: WALKER RAMIREZ DO 01/28/21 [eryth] No Conflict Check Prov: WALKER RAMIREZ DO 01/28/21 WALKER RAMIREZ DO Jan 28, 2021 19:11
[2021-01-28] MEDS ORDERED: FLUORESCEIN OPHTH TEST STRIP. OS ONE (19:15)
[2021-01-28] MEDS ORDERED: DIPH,PERTUSS(ACELL),TET VAC/PF 0.5 ML SYRINGE. VAX IM ONE (19:30)
[2021-01-28] MEDS ORDERED: ACET1TAB33 PO (19:33)
== END 2021-01-28 19:56 | disposition home or self-care (01) ==
LOC: ER 18:42
DX: S05.02XA Injury of conjunctiva and corneal abrasion without foreign body, left eye, initial encounter (principal); H57.89 Other specified disorders of eye and adnexa; E11.9 Type 2 diabetes mellitus without complications; J44.9 Chronic obstructive pulmonary disease, unspecified; I11.0 Hypertensive heart disease with heart failure; I50.9 Heart failure, unspecified; I25.2 Old myocardial infarction; F17.200 Nicotine dependence, unspecified, uncomplicated; Z98.890 Other specified postprocedural states; Z85.9 Personal history of malignant neoplasm, unspecified; X58.XXXA Exposure to other specified factors, initial encounter; Y93.89 Activity, other specified; Y92.89 Other specified places as the place of occurrence of the external cause; Y99.8 Other external cause status
CPT/HCPCS: 90471; 90715; 99283